=== PATIENT | female | born 1970 | race Caucasian/White ===

== ENCOUNTER 2019-09-17 01:09 | Observation (INO) | payer MEDICAID ==
[~2019-09-17] VITALS: Ht 152.4 cm; Wt 75.0 kg
[2019-09-17] MEDS ORDERED: UNK INHALER (01:17)
[2019-09-17] MEDS ORDERED: ALBUTEROL SULF8.5 GM INH (01:17)
[2019-09-17 01:38] LABS: BASOPHILS 0.4 % (0-2); EOSINOPHILS 2.7 % (0-7); HEMOGLOBIN 11.8 g/dL (12-16); IMMATURE GRANULOCYTES 0.1 % (0-5); LYMPHOCYTES 39.3 % (15-50); MCH 29.9 pg (26.0-34.0); MCHC 32.8 g/dL (31.0-37.0); MCV 91.4 fL (80.0-100.0); NEUTROPHILS 50.5 % (40-80); PLATELET COUNT 212 10x3/uL (130-400); RBC 3.94 10x6/uL (4.00-5.40); RDW 13.8 % (11.5-14.5); WBC 7.7 10x3/uL (4.8-10.8)
[2019-09-17 01:46] LABS: CALC OSMOLALITY 279 mosm/kg (275-300); CALCIUM 8.8 mg/dL (8.5-10.1); CARBON DIOXIDE 25.8 mmol/L (21.0-32.0); CHLORIDE - SERUM 104 mmol/L (98-107); GLUCOSE 104 mg/dL (74-106); POTASSIUM - SERUM 3.7 mmol/L (3.5-5.1); PROTIME 12.7 SECONDS (11.6-15.0); SODIUM 140 mmol/L (136-145); UREA NITROGEN 16 mg/dL (7-18); eGFR NON AFRICAN AMERICAN 62 mL/min (90-120)
[2019-09-17 01:47] LABS: D-DIMER-QUANTITATIVE 0.38 ug/mLFEU (0.20-0.54)
--- NOTE | 2019-09-17 01:54 | NUR ---
ATTEMPT X3 TO OBTAIN IV. PT REFUSES ADDITIONAL STICKS. ADVISED EDP.
[2019-09-17 02:00] LABS: ALBUMIN 3.3 g/dL (3.4-5.0); ALKALINE PHOSPHATASE 94 U/L (46-116); ALT (SGPT) 20 U/L (10-68); BILIRUBIN - TOTAL 0.25 mg/dL (0.2-1.3); CKMB 1.5 U/L (0.0-3.6); CREATINE KINASE 90 UL (21-215); MAGNESIUM - SERUM 1.8 mg/dL (1.8-2.4); PROTEIN - SERUM 7.5 g/dL (6.4-8.2)
[2019-09-17 02:01] LABS: TROPONIN-I < 0.017 ng/mL (0.000-0.060)
--- NOTE | 2019-09-17 02:34 | NUR ---
IV TO RIGHT ANTERIOR WRIST X 1 WITH 22G. NITRO 1 SL GIVEN. PT STATES HAS ALREADY TAKEN AN ASPIRIN PRIOR TO ARRIVAL.
[2019-09-17 02:39] VITALS: BP 137/84
--- NOTE | 2019-09-17 02:44 | NUR ---
PT STATES NO REAL DIFFERENCE FROM 1'ST NITRO. SECOND NITRO GIVEN. ON CM WITH O2 IN PLACE.
[2019-09-17 02:53] VITALS: BP 119/81
--- NOTE | 2019-09-17 02:53 | NUR ---
PT STATES PAIN IS SOMEWHAT BETTER IN CHEST BUT HER ARM HURTS STILL.
[2019-09-17 04:33] VITALS: BP 144/87; BMI 32.2
--- NOTE | 2019-09-17 07:15 | NUR ---
RECEIVED PT IN BED EYES CLOSED RESP UNLABORED SKIN W/D COLOR WNL NAD NOTED WILL CONTINUE TO MONITOR
[2019-09-17 07:38] LABS: CKMB 1.1 U/L (0.0-3.6); CREATINE KINASE 69 UL (21-215); TROPONIN-I < 0.017 ng/mL (0.000-0.060)
[2019-09-17 09:14] VITALS: BP 136/82
[2019-09-17 10:53] VITALS: Ht 152.4 cm; Wt 75.0 kg
--- NOTE | 2019-09-17 11:20 | NUR ---
SPOKE WITH PT RE REFERRAL TO TOBACCO QUITLINE. SHE DECLINES AT THIS TIME. STATES HER DOCTOR IS GOING TO GIVE HER PATCHES.
[2019-09-17 12:47] VITALS: BP 129/89
--- NOTE | 2019-09-17 13:05 | NUR ---
REVIEWED DISCHARGE INSTRUCTIONS WITH PT STATES UNDERSTANDING COPY GIVEN DCD SALINE LOCK TO RT WRIST WITH IV CATHETER INTACT SITE FREE OF REDNESS OR EDEMA PT DISCHARGED HOME LEFT UNIT IN STABLE CONDITION VIA W/C WITH ALL PERSONAL BELONGINGS
--- NOTE | 2019-09-18 09:29 | HP ---
PATIENT: REYNA DE LEÓN MEDICAL RECORD: [id number] ACCOUNT: [id number] LOCATION:[address] : 68 ADMISSION DATE: 09/17/19 PCP: NUBIA QUICK MD HISTORY AND PHYSICAL EXAMINATION DIAGNOSES: 1. Chest pain. 2. Chronic obstructive pulmonary disease. 3. Smoking. 4. Family history of coronary artery disease. HISTORY OF PRESENT ILLNESS: Mrs. De León has no past history of ischemic heart disease, has been having chest pain for quite some time, relatively atypical. It is, however, a dull pain with some sharp components centered around the top of the left breast area. It does not really radiate anywhere. It goes on for hours at a time. It did get worse yesterday, prompting her to come to the Emergency Room. Troponin is normal. EKG is normal with the exception of isolated PVCs. She has had no significant dysrhythmia since she has been admitted. She has continued to have off and on chest pains as she has had for quite some. PHYSICAL EXAMINATION: CONSTITUTIONAL/GENERAL APPEARANCE: Well nourished, well developed, appears stated age. EYES: Lids and conjunctivae noninjected. No discharge. No pallor. ENT: Lips within normal limit. No cyanosis. No pallor. NECK: Carotid arteries, bilateral normal upstroke. No bruits. No thrills. No jugular venous pressure or distention. CERVICAL LYMPH NODES: Nontender. Nonenlarged. THYROID: Not enlarged. No nodules. CARDIOVASCULAR: Precordial exam, nondisplaced. No heaves or pericardial thrills. Rate and rhythm, regular. Heart sounds, normal S1, normal S2. No S3, no gallop, no rub. Systolic murmur, not heard. Diastolic murmur, not heard. RESPIRATORY: Respiratory effort, unlabored. Normal curvature. No thoracic deformity. No chest wall tenderness. Percussion, resonant. Auscultation, clear. No wheezes, no rales, no rhonchi. ABDOMEN: Soft, nondistended, nontender. No abdominal pain, no vomiting and normal appetite. MUSCULOSKELETAL: No joint tenderness, normal gait, normal tone. SKIN: Warm and dry. OVERALL IMPRESSION: Chest pain many atypical components. This has been going on for quite some time with a normal troponin. We will risk stratify with stress testing, Cardiolite imaging as an outpatient. TRANSINT:[id number] Voice Confirmation ID: [id number] DOCUMENT ID: [id number] HISTORY AND PHYSICAL [id number] REYNA DE LEÓN JEFFREY MD at 0929 CC: [id number] DICTATION DATE: 09/17/19 1250 BOX MACHINE OPERATOR: 09/17/19 1436 DIS IN 09/17/19 [facility] [address] [place] [id number]
--- NOTE | 2019-09-18 09:29 | DS ---
PATIENT:REYNA DE LEÓN :68 MEDICAL RECORD: [id number] DISCHARGE SUMMARY ADMISSION DATE: 09/17/19 DISCHARGE DATE: 09/17/19 DIAGNOSES: 1. Chest pain. 2. Chronic obstructive pulmonary disease. 3. Smoking. 4. Family history of coronary artery disease. Ms. De León presents with chest pain, normal troponin, normal EKG. The chest pain has been going on for quite some time. We will discharge and risks stratify with stress testing. Cardiolite imaging as an outpatient. TRANSINT:[id number] Voice Confirmation ID: [id number] DOCUMENT ID: [id number] GLORIA ARZATE MD at 0929 CC: [id number] DICTATION DATE: 09/17/19 1250 DINKEY ENGINE FIRER/FIREMAN: 09/18/19 0406 DIS IN 09/17/19 [facility] [address] [place] [address]
--- NOTE | 2019-09-18 09:34 | MORECARE ---
CASE MANAGEMENT DISCHARGE SUMMARY PATIENT: REYNA DE LEÓN UNIT: [id number] ADM DATE: 09/17/19 AGE: 48 : 68 SEX: F ROOM/BED: D.2117 AUTHOR: YOSI TORRES PHYSICIAN: REFERRING PHYSICIAN: GOLRIA ARZATE MD DATE OF SERVICE: 09/18/19 Discharge Plan Patient Name: REYNA DE LEÓN [facility] [facility] 1970 Planned Disposition: Home Anticipated Discharge Date: 09/17/19 Discharge Date: 09/17/2019 Expected LOS: 1 Initial Reviewer: [email or web address] Initial Review Date: 09/18/2019 Generated: 09/18/19 10:34 am Patient Name: REYNA DE LEÓN Page [id number] at 0934 All edits/amendments must be made on the electronic document DICTATION DATE: 09/18/19933 RUG CLEANER HAND: EVON 09/18/19933 RPT#: [id number] DC DATE:09/17/19 STATUS: DIS IN [facility] [address] [facility] [place] [address] END OF REPORT
== END 2019-09-17 13:05 | disposition home or self-care (01) ==
LOC: D.ER 01:09 → OBSVTIME 03:22 → D.M2 03:22
PROVIDERS: Emergency Medicine; ADMIT Internal Medicine Interventional Cardiology; ATTEND Internal Medicine Interventional Cardiology
DX: R07.9 Chest pain, unspecified (principal); J44.9 Chronic obstructive pulmonary disease, unspecified; Z82.49 Family history of ischemic heart disease and other diseases of the circulatory system; F17.200 Nicotine dependence, unspecified, uncomplicated

== ENCOUNTER → 2019-09-26 11:06 | Outpatient (CLI) | payer MEDICAID ==
[2019-09-17 10:53] VITALS: BMI 32.2
[~2019-09-26 11:06] MED LIST: ALBUTEROL SULF8.5 GM INH; UNK INHALER
== END | disposition home or self-care (01) ==
LOC: D.HCCARDIO 11:06
PROVIDERS: ATTEND Internal Medicine Interventional Cardiology
DX: R07.9 Chest pain, unspecified (principal)

== ENCOUNTER → 2020-01-19 13:06 | Outpatient (CLI) | payer MEDICAID ==
[2019-09-17 10:53] VITALS: BMI 32.2
== END | disposition home or self-care (01) ==
LOC: D.US 01-16 14:00
PROVIDERS: ATTEND Internal Medicine Interventional Cardiology
DX: R09.89 Other specified symptoms and signs involving the circulatory and respiratory systems (principal)

== ENCOUNTER → 2020-07-24 11:13 | Outpatient (CLI) | payer OTHER ==
[2019-09-17 10:53] VITALS: BMI 32.2
== END | disposition home or self-care (01) ==
LOC: D.RAD 11:13
PROVIDERS: ATTEND Pediatrics
DX: Z02.71 Encounter for disability determination (principal)